=== PATIENT | male | born 1960 | race Caucasian/White ===

== ENCOUNTER 2019-03-20 12:32 | Emergency (ER) | payer BC, MEDICAID ==
[2019-03-20] MEDS ORDERED: Famotidine 20 MG Tab PO ONE (12:47)
--- NOTE | 2019-03-20 12:52 | EDM.PDOC ---
ED HPI GENERAL MEDICAL PROBLEM - General Chief Complaint: Bite:Animal, Insect Stated Complaint: BEE STING VIA [facility] Time Seen by Provider: 03/20/19 12:35 Source of Information: Reports: Patient, RN History Limitations: Reports: No Limitations - History of Present Illness INITIAL COMMENTS - FREE TEXT/NARRATIVE: 58 yo male was stung under his R eye and behind an arm around mid day today. He says his vision got dim and he was taken via car to the clinic. They gave epi x 2 and IM 50 mg Benedryl. EMS transported from the clinic to the ER. A saline lock was started by EMS, but no further meds given. Franko denies itching. He apparently passed out briefly in the clinic. No hx of bee sting allergy. Onset: Today Onset Date: 03/20/19 Onset Time: 12:00 Duration: Minutes:, Improving Location: Reports: Generalized Quality: Reports: Other (no pain) Severity: Severe (BP drop apparently) Improves with: Reports: Other (epi/Benedryl) Worsens with: Reports: Other (bee stings) Context: Reports: Other (bee sting x 2) Associated Symptoms: Reports: Syncope, Weakness, Other (vision got dark) Treatments SALES INCENTIVE ANALYST: Reports: Other (see below) Other Treatments SALES INCENTIVE ANALYST: epi shots x 2 Im benadry 50 mg at the [facility] Right Upper Face/Facial Pain Score (Numeric/FACES): 4 Headache Pain Score (Numeric/FACES): 5 - Related Data Allergies Allergy/AdvReac Type Severity Reaction Status Date / Time No Known Allergies Allergy Verified 03/20/19 12:39 Home Meds: Home Meds Flecainide Acetate 50 mg PO DAILY 03/20/19 [History] Lisinopril 5 mg PO DAILY 03/20/19 [History] Metoprolol Succinate [Toprol XL] 12.5 mg PO BID 03/20/19 [History] ED ROS GENERAL - Review of Systems Review Of Systems: See Below Constitutional: Reports: No Symptoms HEENT: Reports: No Symptoms Respiratory: Reports: No Symptoms Cardiovascular: Reports: Lightheadedness (better now) Endocrine: Reports: No Symptoms GI/Abdominal: Reports: No Symptoms : Reports: No Symptoms Musculoskeletal: Reports: No Symptoms Skin: Reports: No Symptoms Neurological: Reports: No Symptoms Psychiatric: Reports: No Symptoms ED EXAM, ANIMAL BITE - Physical Exam Exam: See Below Exam Limited By: No Limitations General Appearance: Alert, WD/WN, No Apparent Distress Eye Exam: Bilateral Eye: Normal Inspection Ears: Normal External Exam, Normal Canal, Hearing Grossly Normal, Normal TMs Nose: Normal Inspection, Normal Mucosa, No Blood Throat/Mouth: Normal Inspection, Normal Lips, Normal Oropharynx, Normal Voice, No Airway Compromise Head: Atraumatic, Normocephalic Neck: Normal Inspection Respiratory/Chest: No Respiratory Distress, Lungs Clear, Normal Breath Sounds, No Accessory Muscle Use Cardiovascular: Regular Rate, Rhythm, No Edema GI/Abdominal: Normal Bowel Sounds, Soft, Non-Tender, No Distention Back Exam: Normal Inspection, Full Range of Motion. No: CVA Tenderness (R), CVA Tenderness (L) Extremities: Normal Inspection, Normal Range of Motion, Non-Tender, No Pedal Edema Neurological: Alert, Oriented, CN II-XII Intact, Normal Cognition, No Motor/ Sensory Deficits Psychiatric: Normal Affect, Normal Mood Skin Exam: Normal Color, Warm/Dry Lymphadenopathy: Bilateral: No Adenopathy Lymphatic: No Adenopathy Course - Vital Signs Last Recorded V/S: Last Vital Signs Temp 36.6 C 03/20/19 12:34 Pulse 108 H 03/20/19 13:25 Resp 15 03/20/19 13:25 BP 160/96 H 03/20/19 13:25 Pulse Ox 108 H 03/20/19 13:25 Orthostatic Blood Pressure [] 138/90 Orthostatic Blood Pressure [] 128/82 Orthostatic Blood Pressure [] 144/89 - Orders/Labs/Meds Orders: Active Orders 24 hr Category Date Time Status Orthostatic Vital Signs [RC] ASDIRECTED Care 03/20/19 13:40 Active Meds: Medications Discontinued Medications Generic Name Dose Route Start Last Admin Trade Name Freq PRN Reason Stop Dose Admin Acetaminophen 1,000 mg 03/20/19 13:27 03/20/19 13:34 Tylenol Extra Strength PO 03/20/19 13:28 1,000 mg ONETIME ONE Administration Famotidine 40 mg 03/20/19 12:47 03/20/19 12:54 Pepcid PO 03/20/19 12:48 40 mg ONETIME ONE Administration Departure - Departure Time of Disposition: 14:00 Disposition: Home, Self-Care 01 Condition: Good Clinical Impression: Bee sting allergy - Discharge Information *PRESCRIPTION DRUG MONITORING PROGRAM REVIEWED*: No *COPY OF PRESCRIPTION DRUG MONITORING REPORT IN PATIENT LISSET: No Instructions: Allergies, Adult, [id number] Referrals: PCP,None [Primary Care Provider] - Forms: ED Department Discharge Additional Instructions: Continue diphenhydramine 50 mg every 4 hrs as needed for itching/rash. Drink ample fluids and rest today. Use Epi Pen as needed in the future for severe allergic reactions. - My Orders Last 24 Hours: My Active Orders 03/20/19 13:40 Orthostatic Vital Signs [RC] ASDIRECTED - Assessment/Plan Last 24 Hours: My Active Orders 03/20/19 13:40 Orthostatic Vital Signs [RC] ASDIRECTED
[2019-03-20] MEDS ORDERED: Acetaminophen 500 MG Tab PO ONE (13:27)
== END 2019-03-20 14:07 | disposition home or self-care (01) ==
LOC: JP.ED 12:32
DX: T63.441A Toxic effect of venom of bees, accidental (unintentional), initial encounter (principal); Z79.899 Other long term (current) drug therapy
CPT/HCPCS: 99282; A9270